=== PATIENT | male | born 1955 | race Caucasian/White ===

== ENCOUNTER 2017-06-26 13:42 | Emergency (ER) | payer OTHER ==
[2017-06-26] MEDS: Sodium Chloride 0.9% 1,000 ML IV SCH (14:02)
[2017-06-26] MEDS ORDERED: HYDROmorphone 2 MG/ML Syringe IVPUSH ONE (14:14)
[2017-06-26] MEDS ORDERED: Ondansetron 4 MG/2 ML SDV IVPUSH ONE (14:17)
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
== END 2017-06-26 15:05 ==
LOC: LB.ED 13:42
DX: S77.12XA Crushing injury of left thigh, initial encounter (principal); W23.0XXA Caught, crushed, jammed, or pinched between moving objects, initial encounter; Y92.79 Other farm location as the place of occurrence of the external cause
CPT/HCPCS: 36415; 73552-LT; 80053; 82550; 85025; 96374; 96375; 99284-25; A0425; A0429; J7040